=== PATIENT | female | born 1940 | race Caucasian/White ===

== ENCOUNTER 2019-05-16 06:30 | Emergency (ER) | payer BC ==
[~2019-05-16] VITALS: Ht 172.7 cm; Wt 84.8 kg
[2019-05-16] MEDS ORDERED: Prozac20 MG PO (06:44)
[2019-05-16] MEDS ORDERED: Ativan0.5 MG PO (09:22)
== END 2019-05-16 09:50 | disposition home or self-care (01) ==
LOC: ER 06:30
DX: F41.8 Other specified anxiety disorders (principal); Z88.5 Allergy status to narcotic agent
CPT/HCPCS: 99283